=== PATIENT | male | born 1985 | race Two or more races ===

== ENCOUNTER 2018-09-07 15:36 | Emergency (ER) | payer OTHER ==
[~2018-09-07] VITALS: Ht 182.9 cm; Wt 86.2 kg
[2018-09-07 15:58] VITALS: BP 119/76
--- NOTE | 2018-09-07 16:08 | RAD ---
EXAM: PA, oblique and lateral views right hand DATE: 09/07/2018 3:59 PM INDICATION: INJURY FROM PLAYING SOCCER TO RIGHT 4TH DIGIT 09/02/18 COMPARISON: No Prior FINDINGS: No evidence of acute fracture or dislocation. Soft tissue swelling seen about the PIP joint of the middle and ring fingers. Flexion is seen at the PIP joint of the right ring finger with borderline extension at the DIP joint. Underlying tendinous injury is not excluded. IMPRESSION: 1. No evidence of acute fracture or dislocation. 2. Soft tissue swelling about the PIP joint middle and ring fingers. 3. Borderline swan neck type deformity of the right ring finger Electronically signed by: Brian Ren MD (09/07/2018 4:05 PM) [facility]
[2018-09-07] MEDS ORDERED: IBUP800T19 PO (16:17)
--- NOTE | 2018-09-07 16:17 | PHYS DOC ---
Adult General Chief Complaint Chief Complaint: HAND PROBLEM HPI HPI Patient is a 32 year old left-handed male who presents with opening of pain of right hand. Patient states he jammed his right hand and ring finger while playing soccer 5 days ago and applied ice and use ibuprofen but the ecchymoses and pain is not getting better. Patient denies other injuries and focal neurodeficit. Review of Systems Review of Systems Constitutional: Denies fever or chills [] Eyes: Denies change in visual acuity, redness, or eye pain [] HENT: Denies nasal congestion or sore throat [] Respiratory: Denies cough or shortness of breath [] Cardiovascular: No additional information not addressed in HPI [] GI: Denies abdominal pain, nausea, vomiting, bloody stools or diarrhea [] : Denies dysuria or hematuria [] Musculoskeletal: Denies back pain, reports joint pain [] Integument: Denies rash or skin lesions [] Neurologic: Denies headache, focal weakness or sensory changes [] Endocrine: Denies polyuria or polydipsia [] All other systems were reviewed and found to be within normal limits, except as documented in this note. Physical Exam Physical Exam Constitutional: Well developed, well nourished, no acute distress, non-toxic appearance. [] HENT: Normocephalic, atraumatic Eyes: PERRLA, EOMI, conjunctiva normal, no discharge. [] Neck: Normal range of motion, no tenderness, supple, no stridor. [] Cardiovascular:Heart rate regular rhythm, no murmur [] Lungs & Thorax: Bilateral breath sounds clear to auscultation [] Extremities: Right hand with mild ecchymosis in proximal phalanx of ring finger extending to fourth without carpal area without deformity or neurovascular deficit, painful range of motion . Neurologic: Alert and oriented X 3, normal motor function, normal sensory function, no focal deficits noted. [] Psychologic: Affect normal, judgement normal, mood normal. [] EKG EKG [] Radiology/Procedures Radiology/Procedures [address] [address] IMAGING REPORT Signed PATIENT: JESSIKA STUBBS ACCOUNT: [id number] : 1985 LOCATION: ER AGE: 32 SEX: M EXAM STATUS: REG ER ORD. PHYSICIAN: TEE HENDRICKS MD REASON: sport injury to right 4th digit 09/02/18 PROCEDURE: HAND RIGHT 3V EXAM: PA, oblique and lateral views right hand DATE: 09/07/2018 3:59 PM INDICATION: INJURY FROM PLAYING SOCCER TO RIGHT 4TH DIGIT 09/02/18 COMPARISON: No Prior FINDINGS: No evidence of acute fracture or dislocation. Soft tissue swelling seen about the PIP joint of the middle and ring fingers. Flexion is seen at the PIP joint of the right ring finger with borderline extension at the DIP joint. Underlying tendinous injury is not excluded. IMPRESSION: 1. No evidence of acute fracture or dislocation. 2. Soft tissue swelling about the PIP joint middle and ring fingers. 3. 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 (See chart for details) discharge: I've spoken with the patient and/or caregivers. I've explained the patient's condition, diagnosis and treatment plan based on information available to me at this time. I've answered the patient's and/or caregivers questions and addressed any concerns. The patient and/or caregivers have a good understanding the patient's diagnosis, condition and treatment plan as can be expected at this point. Vital signs have been stabilized. The patient's condition is stable for discharge from the emergency department. The patient will pursue further outpatient evaluation with her primary care provider or other designated consulting physician as outlined in the discharge instructions. Patient and/or caregivers are agreeable to this plan of care and follow-up instructions have been explained in detail. The patient and/or caregivers have received these instructions in written format and expressed understanding of these discharge instructions. The patient and her caregivers are aware that if any significant change in condition or worsening of symptoms should prompt him to immediately return to this of the closest emergency department. If an emergent department is not readily available I would encourage him to call 911. Aj Disclaimer Dragon Disclaimer This electronic medical record was generated, in whole or in part, using a voice recognition dictation system. Departure Departure: Impression: Primary Impression: Contusion of right hand, initial encounter Disposition: HOME, SELF-CARE (at 1616) Condition: STABLE Referrals: ELOISE MCKEON PA-C (PCP) Patient Instructions: Hand Contusion Additional Instructions: Apply ice on the affected area Follow-up with your primary care physician in 3-5 days Return to ER if not getting better Scripts Ibuprofen (IBUPROFEN) 800 Mg Tablet 1 TAB PO TID for pain, #30 TAB Prov: TEE HENDRICKS MD 09/07/18 TEE HENDRICKS MD Sep 07, 2018 16:17
== END 2018-09-07 16:22 | disposition home or self-care (01) ==
LOC: ER 15:36
DX: S60.041A Contusion of right ring finger without damage to nail, initial encounter (principal); X50.9XXA Other and unspecified overexertion or strenuous movements or postures, initial encounter; Y93.66 Activity, soccer; Y92.89 Other specified places as the place of occurrence of the external cause; Y99.8 Other external cause status
CPT/HCPCS: 73130; 99283

== ENCOUNTER 2018-10-08 11:00 | Emergency (ER) | payer OTHER ==
[~2018-10-08] VITALS: Ht 177.8 cm; Wt 86.2 kg
[~2018-10-08 11:00] MED LIST: IBUP800T19 PO
[2018-10-08 11:05] VITALS: BP 154/95
--- NOTE | 2018-10-08 11:23 | PHYS DOC ---
Past History Past Medical History: No Pertinent History, Other Additional Past Medical Histor: urethral issues Past Surgical History: No Surgical History Smoking: Non-smoker Alcohol Use: None Drug Use: None Adult General HPI HPI Patient is a 32-year-old male who presents with left testicular pain. This has been present for the past week. Pain started after he injured his hamstring performing sprints. Patient wrapped his hamstring with an Geo wrap after being seen [place] the [place] and started having discomfort shortly thereafter. Patient denies any dysuria. He reports some hematuria. This is an ongoing problem due to having a urethral issue and he has to self catheter approximately once a month to re-dilate his urethra. Denies any fever or flank pain. Patient is sexually active, one partner. No discharge noted in his underwear.[] Review of Systems Review of Systems Constitutional: Denies fever or chills [] Eyes: Denies change in visual acuity, redness, or eye pain [] HENT: Denies nasal congestion or sore throat [] Respiratory: Denies cough or shortness of breath [] Cardiovascular: No chest pain or palpitations[] GI: Denies abdominal pain, nausea, vomiting, bloody stools or diarrhea [] : See history of present illness[] Musculoskeletal: Denies back pain or joint pain [] Integument: Denies rash or skin lesions [] Neurologic: Denies headache, focal weakness or sensory changes [] Endocrine: Denies polyuria or polydipsia [] All other systems were reviewed and found to be within normal limits, except as documented in this note. Physical Exam Physical Exam Constitutional: Well developed, well nourished, no acute distress, non-toxic ap pearance. [] HENT: Normocephalic, atraumatic, bilateral external ears normal, oropharynx moist, no oral exudates, nose normal. [] Eyes: PERRLA, EOMI, conjunctiva normal, no discharge. [] Neck: Normal range of motion, no tenderness, supple, no stridor. [] Cardiovascular:Heart rate regular rhythm, no murmur [] Lungs & Thorax: Bilateral breath sounds clear to auscultation [] Abdomen: Bowel sounds normal, soft, no tenderness, no masses, no pulsatile masses. exam: Normal male, circumcised, bilateral descended testes, normal cremaster reflex, tenderness to palpation of the left posterior testicle, along the epididymis. [] Skin: Warm, dry, no erythema, no rash. [] Back: No tenderness, no CVA tenderness. [] Extremities: No tenderness, no cyanosis, no clubbing, ROM intact, no edema. [] Neurologic: Alert and oriented X 3, normal motor function, normal sensory function, no focal deficits noted. [] Psychologic: Affect normal, judgement normal, mood normal. [] EKG EKG [] Radiology/Procedures Radiology/Procedures PROCEDURE: TESTICULAR/SCROTUM Testicular and scrotal ultrasound History: Left scrotal swelling and pain Comparison: None. Findings: Multiple grayscale, color, duplex spectral analysis waveform images of the testicles and scrotum are submitted. No intratesticular mass is demonstrated. There are a few scattered small echogenic foci of the testicles, evidence of microcalcifications. There are small hydroceles bilaterally. There is normal low resistance vascularity of interrogated intratesticular vessels bilaterally. Left epididymis appears somewhat more prominent although otherwise fairly homogeneous in appearance. Note is made of left groin lymph nodes largest about 1.6 cm longitudinal, preservation of fatty hilar regions. Impression: 1. There is no evidence of testicular torsion or intratesticular mass. There are small hydroceles bilaterally. There is mild microlithiasis. Left epididymis is somewhat enlarged although otherwise no other demonstrable abnormality to confidently suggest epididymitis. 2. There are nonspecific left groin lymph nodes although not considered significantly enlarged based on short axis dimension.[] Course & Med Decision Making Course & Med Decision Making Pertinent Labs and Imaging studies reviewed. (See chart for details) ED course: Patient arrived, was placed in bed, and tolerated exam well. He was transported to and from ultrasound with any Patients. After return the ultrasound findings, these were discussed with the patient who voiced understanding. All questions were answered. Medical decision making: Given the epididymal tenderness and the ultrasound findings, we'll cover for epididymitis. There is no evidence of torsion or abscess. No evidence of a hernia.[] Dragon Disclaimer Dragon Disclaimer This electronic medical record was generated, in whole or in part, using a voice recognition dictation system. Departure Departure: Impression: Primary Impression: Epididymitis Disposition: HOME, SELF-CARE Condition: IMPROVED Referrals: ELOISE MCKEON PA-C (PCP) Follow-up in 2 days Patient Instructions: Epididymitis Additional Instructions: Follow-up with your regular doctor in 2 days. Drink plenty of fluids. Take the medication as prescribed. Return to the ER if worsening discomfort or any other concerns. Scripts Levofloxacin (LEVAQUIN) 500 Mg Tablet 1 TAB PO DAILY for epididymitis, #10 TAB Prov: DAGMAR AWAN DO 10/08/18 Tramadol Hcl (TRAMADOL HCL) 50 Mg Tablet 50 MG PO PRN Q6HRS PRN for PAIN, #20 TAB Prov: DAGMAR AWAN DO 10/08/18 Meloxicam (MELOXICAM) 7.5 Mg Tablet 7.5 MG PO DAILY for PAIN, #20 TAB Prov: DAGMAR AWAN DO 10/08/18 DAGMAR AWAN DO Oct 08, 2018 11:23
[2018-10-08 12:26] LABS: BACTERIA,URINE FEW /HPF (0-FEW); BILIRUBIN,URINE NEG (NEG); CLARITY,URINE HAZY; COLOR,URINE YELLOW; GLUCOSE,URINE NEG (NEG); HYALINE CASTS, URINE OCC /HPF; NITRITE,URINE NEG (NEG); SPERM,URINE PRESENT /HPF; SQUAMOUS EPITHELIAL CELL,UR FEW /LPF; UROBILINOGEN,URINE 1 mg/dL (0.2 mg/dL)
--- NOTE | 2018-10-08 13:47 | RAD ---
Testicular and scrotal ultrasound History: Left scrotal swelling and pain Comparison: None. Findings: Multiple grayscale, color, duplex spectral analysis waveform images of the testicles and scrotum are submitted. No intratesticular mass is demonstrated. There are a few scattered small echogenic foci of the testicles, evidence of microcalcifications. There are small hydroceles bilaterally. There is normal low resistance vascularity of interrogated intratesticular vessels bilaterally. Left epididymis appears somewhat more prominent although otherwise fairly homogeneous in appearance. Note is made of left groin lymph nodes largest about 1.6 cm longitudinal, preservation of fatty hilar regions. Impression: 1. There is no evidence of testicular torsion or intratesticular mass. There are small hydroceles bilaterally. There is mild microlithiasis. Left epididymis is somewhat enlarged although otherwise no other demonstrable abnormality to confidently suggest epididymitis. 2. There are nonspecific left groin lymph nodes although not considered significantly enlarged based on short axis dimension. Electronically signed by: Maxwell Cheung MD (10/08/2018 1:44 PM) [facility]
[2018-10-08] MEDS ORDERED: MELO7.5T29 PO (13:58)
[2018-10-08] MEDS ORDERED: LEVO500T59 PO (13:58)
[2018-10-08] MEDS ORDERED: TRAM50TA PO (13:58)
== END 2018-10-08 14:11 | disposition home or self-care (01) ==
LOC: ER 11:00
DX: N45.1 Epididymitis (principal); R31.9 Hematuria, unspecified
CPT/HCPCS: 36415; 76870; 81001; 87491; 87591; 99285